=== PATIENT | female | born 2000 | race Caucasian/White ===

== ENCOUNTER 2022-03-10 10:29 | Emergency (ER) | payer OTHER, SELFPAY ==
--- NOTE | 2022-03-10 10:36 | ED_ITS ---
HPI - Extremity Injury (Upper) General Chief Complaint: Extremity Injury, Upper Stated Complaint: Smashed hand in truck door- poss broken finger Time Seen by Provider: 03/10/22 10:34 History of Present Illness HPI narrative: 21-year-old female nonsmoker with noncontributory medical history presents with a chief complaint of a crush injury to her right 5th finger just prior to arrival. She is working as a metal casting trades worker and the sliding door to a truck smashed on her finger causing injury. She has full but painful range of motion and multiple lacerations. She is bleeding some. She denies numbness or tingling. She denies injury to other fingers, hand, wrist elbow or other. She believes her tetanus is likely out of date. She is otherwise well and free of complaint Related Data Previous Rx's Medication Instructions Recorded cephalexin 500 mg capsule 500 mg PO BID #10 cap 03/10/22 Allergies Allergy/AdvReac Type Severity Reaction Status Date / Time No Known Drug Allergies Allergy Verified 03/10/22 10:40 Review of Systems Review of Systems Narrative: GENERAL: Denies chills, fatigue, malaise, fever, sweats. HEENT: Denies sinus pain, ear pain, sore throat, difficulty swallowing, dizziness. RESPIRATORY: Denies dyspnea, cough, wheezing, hemoptysis, sputum. CARDIOVASCULAR: Denies chest pain, palpitations, orthopnea, edema, GASTROINTESTINAL: Denies nausea, vomiting, abdominal pain, diarrhea, constipation, melena. : Denies dysuria, frequency, incontinence, hematuria, urinary retention. MUSCULOSKELETAL: See HPI SKIN: See HPI NEUROLOGIC: Denies weakness, headache, numbness, change in speech, confusion, seizures, incoordination. PSYCHIATRIC: No concerning psychosocial issues. 12 point review of systems is negative except for those stated above Patient History Social History Smoking Status: Never smoker Exam Narrative Exam Narrative: GEN: AOx3 and in mild distress EYES: Pupils are equal, round, and reactive to light and accommodation. Extraoccular muscles are intact bilaterally. There is no subconjunctival hem orrhage or exudate. CHEST: Lungs are clear to auscultation bilaterally and free of wheezes, rales, or rhonchi. Heart rate is regular rhythm, there are no murmurs, clicks, rubs, or gallops. There is no chest wall tenderness. ABD: Abdomen is soft and nontender. There is no guarding or rebound. Bowel sounds are normal in all 4 quadrants. There is no mass or organomegaly. EXT: Full but painful ROM of R fifth finger, superficial skin tears on volar surface, depth not sufficient to suture, no FB or tendon involvement. SKIN: Warm, pink, and dry. No erythema or rash Initial Vital Signs Initial Vital Signs: Vital Signs Temperature 97.2 F L 03/10/22 10:40 Pulse Rate 77 03/10/22 10:40 Respiratory Rate 24 03/10/22 10:40 Blood Pressure 150/79 H 03/10/22 10:40 Pulse Oximetry 100 03/10/22 10:40 Course Orders Ordered: ED Orders 03/10/22 10:37 XR finger RT min 2V Stat Discontinued Medications Acetaminophen (Acetaminophen 325 Mg Tablet) 650 mg PO NOW ONE Stop: 03/10/22 10:38 Last Admin: 03/10/22 11:16 Dose: 650 mg Documented by: ATAYLOR Diphtheria/Tetanus/Acell Pertussis (Tet,Diph,Pertuss(Acell),Vac/Pf 0.5 Ml Syringe) 0.5 ml IM .ONCE ONE Stop: 03/10/22 10:38 Last Admin: 03/10/22 11:17 Dose: 0.5 ml Documented by: ATAYLOR Lidocaine/Sodium Bicarbonate (Lido 1%/Sod Bicarb 8.4% (10ml) 10 Ml Syringe) 10 ml INJ NOW ONE Stop: 03/10/22 10:38 Last Admin: 03/10/22 11:15 Dose: 10 ml Documented by: ATAYLOR Vital Signs Vital signs: Vital Signs - 8 hr 03/10/22 10:40 Temperature 97.2 F L Pulse Rate 77 Respiratory Rate 24 Blood Pressure 150/79 H Pulse Oximetry 100 MDM - Extremity Injury (Upper) Imaging Data Extremity x-ray #1: Radiologist's Impression: Chart Viewer Diagnostics Subcategory All Activity ??:?? All Time ??:?? All Subcategories Filter Laboratory Imaging Microbiology Pathology Blood Bank Tests Cardiovascular Other Specialty DATE TYPE STATUS REF RANGE/AUTHOR Hx Today 10:37 Finger X-Ray Signed Rosalinda Zamorano Ashley D ED 21, F?2000 MRN#? [id number] [facility],?Main ED??R11?? 165.1cm 63.503kg BMI: 23.3kg/m? Extremity Injury, Upper Acc#? [id number] Resus Status Not Ordered No Hx Avail Special Indicators No Data to Display Home Meds Confirmed Prescription Monitoring Program MEDICATIONS (INSTRUCTIONS) LAST TAKEN Active cephalexin 500 mgPOBID#10 cap Allergies No Known Drug Allergies Problems ? ONSET Crush injury to finger Vital Signs Today 10:40 BP 150/79?H Pulse 77? Resp 24? Temp 97.2 F?L O2 Sat 100? Delivery Room Air? Diagnostics Reports Danni Colin??21??F??2000 ? Allergy/Adv: No Known Drug Allergies Close Finger X-Ray (Signed) Oz Zamoranoamelia - 03/10/22 [place] [address] XRay Report Signed Patient: Danni Colin MR#: [id number] : 2000 Acct:[id number] Age/Sex: 21 / F Date of Service: 03/10/22 Loc: ED Accession Number: [id number] ?? Procedure: XR finger RT min 2V Ordering Provider: Vamsi Temple D.O. PROCEDURE:? XR FINGER RT MIN 2V ? INDICATIONS:? crush injury to fifth finger ? TECHNIQUE:? AP hand, 2 views of the 5th finger(s) acquired.? ? COMPARISON:? [facility], CR, XR HAND 3+ VIEWS RIGHT, 12/09/2020, 18:54. ? FINDINGS:? ? Bones:? Possible minimally displaced fracture at the base of the 5th distal phalanx of uncertain chronicity.? No dislocation.? No suspicious bony lesions.? ? Soft tissues:? No suspicious soft tissue calcifications.? Soft tissue defect suggesting laceration. ? IMPRESSION:? Suspect minimally displaced fracture at the base of the 5th distal phalanx of uncertain chronicity. ? ? Dictated by: [place] Zamorano M.D. on 03/10/2022 at 10:33 ? ? Approved by: [place] Zamorano M.D. on 03/10/2022 at 10:37 ? Discharge Plan Departure Patient Disposition: Home Clinical Impression: Crush injury to finger Instructions: DI for Finger Fracture Activity Restrictions/Additional Instructions: *You have been diagnosed with [crush injury with likely very small avulsion fracture at the base of the distal phalanx of your saiy. As we discussed the injuries to your skin are not sufficiently deep to allow suture placement, we will need to follow closely with your L&I provider to provide appropriate wound care. *What to do: *Please continue to take your regular medications as directed. [x ] New medication prescriptions sent to your pharmacy: [[facility] in [place] ] [ ] New medication written as a paper prescription [ ] No new medications given *Please follow up with your primary care provider in 2-3 days, call for an appointment. Let them know you were seen in the Emergency Department and that we ask that you be seen in follow up. We will electronically transmit a record of today's note if your PCP is in our system *If you do not have a primary care provider please contact the [facility] Resource line at [phone]. They will ask some questions about your medical history and help get you set up with a doctor in the community. *Return to Emergency Department if you should have any new, worsening or concerning symptoms, such as [fever greater than 101 F, shaking chills, worsening pain, persistent vomiting or other bothersome symptoms] Prescriptions: New cephalexin 500 mg capsule 500 mg PO BID Qty: 10 0RF Referrals: Kevin Ruiz MD [Physician] - Stand Alone Forms: Work Release Note
--- NOTE | 2022-03-10 10:37 | DI.RAD.S_ITS ---
PROCEDURE: XR FINGER RT MIN 2V INDICATIONS: crush injury to fifth finger TECHNIQUE: AP hand, 2 views of the 5th finger(s) acquired. COMPARISON: [facility], CR, XR HAND 3+ VIEWS RIGHT, 12/09/2020, 18:54. FINDINGS: Bones: Possible minimally displaced fracture at the base of the 5th distal phalanx of uncertain chronicity. No dislocation. No suspicious bony lesions. Soft tissues: No suspicious soft tissue calcifications. Soft tissue defect suggesting laceration. IMPRESSION: Suspect minimally displaced fracture at the base of the 5th distal phalanx of uncertain chronicity. Dictated by: [place] Zamorano M.D. on 03/10/2022 at 10:33 Approved by: [place] Zamorano M.D. on 03/10/2022 at 10:37
[2022-03-10 10:40] VITALS: BP 150/79; PULSE 77; RESP 24; TEMP 36.2; O2SAT 100; BMI 23.3
[2022-03-10] MEDS: LIDO 1%/SOD BICARB 8.4% (10ML) 10 ML SYRINGE INJ (11:15)
[2022-03-10] MEDS: ACETAMINOPHEN 325 MG TABLET 650 MG PO (11:16)
[2022-03-10] MEDS: TET,DIPH,PERTUSS(ACELL),VAC/PF 0.5 ML SYRINGE IM (11:17)
--- NOTE | 2022-03-10 11:40 | PC.NURSE ---
wound care provided cleansed with sterile saline. used 2 steri strips and then nonadherent pad and tube gauze to secure site.
[2022-03-10 12:00] VITALS: BP 111/60; PULSE 70; RESP 18; TEMP 36.9; O2SAT 98
== END 2022-03-10 12:13 | disposition home or self-care (01) ==
PROVIDERS: Emergency Provider Emergency Medicine
DX: S67.196A Crushing injury of right little finger, initial encounter (principal); W23.0XXA Caught, crushed, jammed, or pinched between moving objects, initial encounter; Y99.0 Civilian activity done for income or pay; Z23 Encounter for immunization
CPT/HCPCS: 73140; 90471; 99283; 90715

== ENCOUNTER → 2022-05-04 15:08 | Outpatient (CLI) | payer OTHER, MEDICAID, SELFPAY ==
[2022-05-04 20:31] LABS: Urine Chlamydia NOT DETECTED; Urine N gonorrhoeae NOT DETECTED
== END ==
PROVIDERS: Visit Provider Obstetrics & Gynecology
DX: Z34.02 Encounter for supervision of normal first pregnancy, second trimester (principal); Z20.2 Contact with and (suspected) exposure to infections with a predominantly sexual mode of transmission; Z3A.20 20 weeks gestation of pregnancy
CPT/HCPCS: 87491; 87591

== ENCOUNTER → 2022-05-04 15:14 | Outpatient (CLI) | payer OTHER, MEDICAID, SELFPAY ==
[2022-05-04 16:25] LABS: Add Manual Diff / Slide Review NO; Basophils Absolute Auto 0 /uL (0-100); Basophils Percent Auto 0.4 % (0-2); Eosinophils Absolute Auto 200 /uL (0-450); Eosinophils Percent Auto 1.8 % (2-4); Hematocrit 37.3 % (36-46); Hemoglobin 12.8 g/dL (12.0-16.0); Lymphocytes Absolute Auto 2800 /uL (1100-4500); Lymphocytes Percent Auto 24.3 % (25-40); Mean Corpuscular HGB Conc 34.3 % (30-36); Mean Corpuscular Hemoglobin 29.4 PG (26-34); Mean Corpuscular Volume 85.8 fL (80-100); Monocytes Absolute Auto 700 /uL (0-900); Monocytes Percent Auto 5.8 % (3-14); Neutrophils Absolute Auto 7800 /uL (1500-7000); Neutrophils Percent Auto 67.7 % (50-75); Platelet Count 282 X10^3/uL (150-400); Red Blood Cell Count 4.34 X10^6/uL (4.0-5.2); Red Cell Distribution Width 14.3 % (11.6-14.8); White Blood Cell Count 11.5 X10^3/uL (4.5-11.0)
[2022-05-05 09:08] LABS: RPR Screen Non Reactive (Non Reactive); Varicella IgG Antibody <135 index (Immune >165)
[2022-05-07 18:07] LABS: HIV 1 & 2 Ab/Ag 4th Gen Combo NEGATIVE (NEGATIVE); Hep C Virus Ab w/Reflex Quant NEGATIVE s/c (NEGATIVE); Hepatitis B Surface Antigen NEGATIVE s/c (NEGATIVE); Rubella Antibody IgG 9.8 IU/mL (>15)
== END ==
PROVIDERS: Referring Provider Obstetrics & Gynecology; Visit Provider Obstetrics & Gynecology
DX: Z36.89 Encounter for other specified antenatal screening (principal); Z20.2 Contact with and (suspected) exposure to infections with a predominantly sexual mode of transmission; Z3A.20 20 weeks gestation of pregnancy
CPT/HCPCS: 36415; 80055; 86787; 86803; 86850; 86900; 86901; 87389; 87491; 87591

== ENCOUNTER → 2022-05-09 07:41 | Outpatient (CLI) | payer OTHER, MEDICAID, SELFPAY ==
--- NOTE | 2022-05-09 07:42 | DI.US.S_ITS ---
PROCEDURE: US OB >= 14 WEEKS FETUS INDICATIONS: Confirm DONOVAN/ Dating US OUTSIDE/PRIOR DATING DATA: Last menstrual period (LMP): 01/06/2022. LMP-based estimated date of delivery (DONOVAN): 10/13/2022. First dating scan (date and location): 04/05/2022. Estimated date of delivery (DONOVAN) from first dating scan: 09/20/2022. TECHNIQUE: Real-time scanning was performed of the fetus, with image documentation and biometric measurements. Endovaginal scanning: Not performed COMPARISON: None. FINDINGS: General: A single living intrauterine gestation is present. Presentation: Vertex. Placenta: Placental position is anterior , without previa. Amniotic fluid index: 14.1 cm, normal range is 5-24 cm. Single deepest vertical pocket is 4.9 cm. heart rate: 140 beats per minute. Maternal cervical canal: 4.2 cm long. Normal lower limit is 2.5 cm. biometrics: Biparietal diameter: 5.1 cm, 21 weeks 2 days Head circumference: 18.6 cm, 20 weeks 6 days Abdominal circumference: 16.7 cm, 21 weeks 5 days Femur length: 3.5 cm, 20 weeks 6 days Clinically estimated gestational age: 20 weeks 6 days Composite gestational age from present scan: 21 weeks 1 day Estimated weight and percentile: 413 g, 69th percentile Anatomic survey: Neuro: Ventricles are non-dilated at less than 10 mm. Cisterna magna is normal at 3-11 mm. Cerebellum is normal in size and morphology. Nuchal skin fold: Normal at less than 6 mm between 14-21 weeks gestational age. Face: Nose and lips, facial profile are normal. Spine: No evidence for spina bifida. Heart: 4-chambered heart is present, with normal ventricular outflow tracts. Diaphragm: Diaphragm is intact. Stomach: Left-sided stomach is present. Kidneys: No hydronephrosis. Normal is less than 5 mm in 2nd trimester, less than 7 mm in 3rd trimester. Cord: 3-vessel cord has orthotopic insertion. Bladder: Normal in size. Extremities: All 4 extremities identified. IMPRESSION: 1. Single living intrauterine , gestational age of 20 weeks 6 days by LMP. By biometry, gestational age is 21 weeks 1 day. 2. Estimated weight at the 69th percentile. 3. Normal 2nd trimester anatomy scan. No anomalies detected at this time. We strive to produce accurate, complete, and clear reports of imaging services. To assist us in improving patient care, this report was composed using standard report templates and voice recognition software. Therefore, it may contain abnormal punctuation, insertions and/or omissions. Occasional wrong-word or sound-alike substitutions may occur. Though we review the report and make efforts to correct it, we do recommend that the report be read carefully in proper context to recognize any text inaccuracies. Dictated by: Aden Hauser M.D. on 05/09/2022 at 20:20 Approved by: Aden Hauser M.D. on 05/09/2022 at 20:27
== END ==
PROVIDERS: Referring Provider Obstetrics & Gynecology; Visit Provider Obstetrics & Gynecology
DX: Z34.02 Encounter for supervision of normal first pregnancy, second trimester (principal); Z3A.21 21 weeks gestation of pregnancy
CPT/HCPCS: 76811

== ENCOUNTER → 2022-05-28 10:51 | Outpatient (CLI) | payer OTHER, MEDICAID, SELFPAY ==
[2022-05-28 14:52] LABS: Appearance Urine UA SL CLOUDY; Bilirubin Urine UA NEGATIVE (NEGATIVE); Color Urine UA YELLOW; Glucose Urine UA NEGATIVE (Negative); Ketones Urine UA NEGATIVE (NEGATIVE); Leukocyte Esterase Urine UA TRACE (NEGATIVE); Nitrite Urine UA NEGATIVE (Negative); Occult Blood Urine UA NEGATIVE (Negative); Protein Urine UA NEGATIVE (Negative); Urobilinogen Urine UA 0.2 E.U./dL (0.2)
[2022-05-28 15:15] LABS: Amorphous Sediment Urine 2+; Bacteria Urine Occasional (0-1); RBC Urine None Seen (0-5/HPF); Squamous Epithelial Cell Urine 10-30 /HPF (0-5/HPF); WBC Urine 1-5/HPF (0-5/HPF)
== END ==
PROVIDERS: Obstetrics & Gynecology; Visit Provider Obstetrics & Gynecology
DX: Z34.02 Encounter for supervision of normal first pregnancy, second trimester (principal); Z3A.23 23 weeks gestation of pregnancy
CPT/HCPCS: 81003; 81015; 87077; 87086

== ENCOUNTER → 2022-06-25 16:24 | Outpatient (CLI) | payer OTHER, MEDICAID, SELFPAY ==
[2022-06-25 17:47] LABS: Hematocrit 34.9 % (36-46); Hemoglobin 12.3 g/dL (12.0-16.0)
[2022-06-25 18:04] LABS: GTT (PREG) 1 Hour PP 50gm Dose 110 mg/dL (76-139)
== END ==
PROVIDERS: Referring Provider Obstetrics & Gynecology; Visit Provider Obstetrics & Gynecology
DX: O26.899 Other specified pregnancy related conditions, unspecified trimester (principal); Z67.91 Unspecified blood type, Rh negative; Z3A.26 26 weeks gestation of pregnancy
CPT/HCPCS: 36415; 82950; 85014; 85018; 86850

== ENCOUNTER → 2022-08-27 12:48 | Outpatient (CLI) | payer OTHER, MEDICAID, SELFPAY ==
[2022-08-27 15:48] LABS: Urine N gonorrhoeae NOT DETECTED
[2022-08-27 15:55] LABS: Urine Chlamydia NOT DETECTED
[2022-08-28 14:16] LABS: Strep Grp B PCR NEG for Grp B Strep
== END ==
PROVIDERS: Visit Provider Physician Assistant Medical
DX: Z34.03 Encounter for supervision of normal first pregnancy, third trimester (principal); Z3A.36 36 weeks gestation of pregnancy; Z86.19 Personal history of other infectious and parasitic diseases
CPT/HCPCS: 87491; 87591; 87653

== ENCOUNTER 2022-09-17 04:54 | Inpatient (IN) | payer OTHER, MEDICAID, SELFPAY ==
[2022-09-17 06:10] VITALS: BP 124/80
[2022-09-17 06:47] LABS: COVID19 -Nasal RAPID Negative (Negative)
[2022-09-17 06:58] LABS: Add Manual Diff / Slide Review NO; Basophils Absolute Auto 100 /uL (0-100); Eosinophils Absolute Auto 300 /uL (0-450); Eosinophils Percent Auto 2.2 % (2-4); Hematocrit 36.6 % (36-46); Hemoglobin 12.4 g/dL (12.0-16.0); Lymphocytes Absolute Auto 3100 /uL (1100-4500); Lymphocytes Percent Auto 21.3 % (25-40); Mean Corpuscular HGB Conc 33.9 % (30-36); Mean Corpuscular Hemoglobin 29.4 PG (26-34); Mean Corpuscular Volume 86.8 fL (80-100); Monocytes Absolute Auto 1100 /uL (0-900); Monocytes Percent Auto 7.5 % (3-14); Neutrophils Absolute Auto 10000 /uL (1500-7000); Platelet Count 278 X10^3/uL (150-400); Red Blood Cell Count 4.22 X10^6/uL (4.0-5.2); Red Cell Distribution Width 13.9 % (11.6-14.8); White Blood Cell Count 14.6 X10^3/uL (4.5-11.0)
[2022-09-17] MEDS: LACTATED RINGERS 1,000 ML 100 ML IV ×2 (07:35→09:58)
--- NOTE | 2022-09-17 08:04 | P.HPOB_ITS ---
OB HPI Date/Time Date of admission: 09/17/22 Date Patient Seen: 09/17/22 Time Patient Seen: 08:05 History of Present Condition Chief complaint: labor DONOVAN Calculator Estimated Delivery Date Method Current WG Current Estimate 09/20/22 Ultrasound #1 39w 4d Other Estimates 10/13/22 LMP (Uncertain) 36w 2d Estimated Gestational Age (weeks): 39 : 1 Narrative: 22 yo G1 presents at 39 weeks 4 days, with DONOVAN set by a 16 week ultrasound due to discordancy on the 16 week ultrasound, presented with LOF. She awoke around 3:30 a.m. with a gush of fluid which continued. She subsequently developed uncomfortable contractions. She has become more uncomfortable with contractions and desires an epidural. has been uncomplicated. She did have a positive screen for chlamydia pn PAP with her new OB visit, treated and repeat test of cure was negative and re-screen at 36 weeks was negative. She is Rh negative and received RhoGAM at 28 weeks. Commercial Lines Manager history significant for history of genital HSV, on suppression. No lesions or symptoms. Her GBS screen is negative care: good care Dating criteria OB: based on 2nd trimester US only (DONOVAN set by a 16 week US) Ultrasounds: normal mid trimester US Obstetrical complications: none Medical complications OB: none Preadmission Labs Last OB Lab Results: Blood Type A Negative 09/17/22 06:40 Antibody Screen Negative 09/17/22 06:40 Hematocrit 36.6 % (36-46) 09/17/22 06:40 Hemoglobin 12.4 g/dL (12.0-16.0) 09/17/22 06:40 Hepatitis B Surface Antigen Negative s/c (NEGATIVE) 05/04/22 15 :19 Hepatitis C Antibody Negative s/c (NEGATIVE) 05/04/22 15:19 Rubella Antibody 9.8 IU/mL (>15) L 05/04/22 15:19 Varicella-Zoster IgG Antibody <135 index (Immune >165) L 15:19 Glucose 1 Hour 110 mg/dL (76-139) 06/25/22 17:35 Group B Streptococcus (PCR) Neg for grp b strep 08/27/22 12:48 -: Chlamydia screen: positive (04/2022 treated and PETER negative) and Gonorrhea screen: negative -: PAP smear: Normal (04/2022) Evaluation Evaluation Baseline heart rate: 120 Contraction Frequency (minutes): 5 Uterine Contraction Intensity: Moderate Category of Tracing: Reactive Status: Category l Dilation (cm): 3 Effacement (%): 75 station: -1 Non-invasive Membranes Rupture Test: positive Comments: cervical exam at 0620. not re-checked [facility] Medical History Herpes (~2018) Family History Grandfather Diabetes mellitus Hyperlipidemia Grandfather Myocardial infarction Diabetes mellitus History of heart disease Grandmother Ovarian cancer Breast cancer Skin cancer Grandmother Cancer of kidney Mother Colon cancer Social History marital status: unmarried,single number of children: 0 household members: family (Sister and niece) lives independently: Yes housing: apartment ([facility]) pets and animals: Yes (2 cats and one dog. Aware of toxoplasmosis.) education level: high school occupational status: employed current occupational exposures/hazards: No special kenneth needs: No seatbelt use: always water heater temp set < 120 deg: No (Will check) working smoke detector in home: Yes fire extinguisher in home: Yes carbon monox detector in home: Yes firearms in home: No do you feel safe at home: Yes Smoking Status: Never smoker second hand exposure: No alcohol intake: former substance use type: marijuana (Quit when she learned she was ) during the past year weight has: remained stable well-balanced diet: about half the time daily servings fruits/ve-4 caffeine: Yes Type(s) of exercise: walking Meds Home Medications and Allergies Home Medications Medication Instructions Recorded Confirmed Type folic acid 800 mcg tablet 0.8 mg PO DAILY 03/22/22 09/17/22 History prenat.vits,kim,uin-wkxn-ioorg 1 tab PO DAILY 03/22/22 09/17/22 History valacyclovir 500 mg tablet 500 mg PO Q12H #60 tabs 08/22/22 09/17/22 Rx (Valtrex) Allergies Allergy/AdvReac Type Severity Reaction Status Date / Time No Known Drug Allergies Allergy Verified 09/17/22 06:13 OB Exam Narrative Exam Narrative: General: Well-appearing female, uncomfortable with contractions but coping very well Heart: Regular rate Lungs: Normal inspiratory effort Extremities: Trace pedal edema cervical exam at 6:20 a.m. , change from 2 cm in the office. grossly clear fluid noted Objective Labs Result Diagrams: 09/17/22 06:40 Labs: Laboratory Results - last 24 hr 09/17/22 09/17/22 09/17/22 06:29 06:40 06:40 WBC 14.6 H RBC 4.22 Hgb 12.4 Hct 36.6 MCV 86.8 MCH 29.4 MCHC 33.9 RDW 13.9 Plt Count 278 Neut % (Auto) 68.0 Lymph % (Auto) 21.3 L [place] % (Auto) 7.5 Eos % (Auto) 2.2 Baso % (Auto) 1.0 Neut # (Auto) 79008 H Lymph # (Auto) 3100 [place] # (Auto) 1100 H Eos # (Auto) 300 Baso # (Auto) 100 SARS-CoV-2 (PCR) Negative Blood Type A Negative Antibody Screen Negative Assessment and Plan Assessment and Plan Assessment and Plan narrative: 22-year-old G1 female at 39 weeks 4 day EGA with dates by a 16 week ultrasound, presented with ruptured membranes. She progressed into spontaneous labor. She is uncomfortable with contractions And desires an epidural. GBS negative Routine CBC and type and screen sent. Receiving IV fluid bolus for epidural Anesthesiologist already notified and will come shortly for epidural. I will recheck her cervix after the epidural. Time Spent with Patient Total time spent with greater than 50% in coordination of care (as documented) at patient's floor/unit and/or counseling patient:: less than 15 minutes
[2022-09-17] MEDS: FENT 2MCG/ML BUPIV 0.125% EPI 200 MCG/100 ML PLAST..BAG 8 MCG EPIDURAL ×2 (08:35→16:25)
--- NOTE | 2022-09-17 09:49 | PM.OBPNLAB ---
Date/Time Date Patient Seen: 09/17/22 Time Patient Seen: 09:40 Pain Control Pain control: epidural Comments: Comfortable with an epidural now Pelvic Exam Dilation (cm): 6 Effacement (%): 90 station: -1 Amniotic membrane status: Ruptured (at approx 0330) Contractions Contraction frequency (min): 3 Contraction pattern: Irregular Contraction intensity: Moderate Status status: Category l Heart Rate Baseline: 125 Monitor Accelerations: Present Monitor Decelerations: Absent Monitor Variability: Moderate Assessment and Plan Assessment: active labor Plan: continuous present management
[2022-09-17] MEDS: OXYTOCIN PREMIX 30 UNIT/500 ML PLAST..BAG IV (15:04)
--- NOTE | 2022-09-17 16:09 | PM.OBPNLAB ---
Date/Time Date Patient Seen: 09/17/22 Time Patient Seen: 16:09 Pain Control Pain control: tolerating well and epidural Pelvic Exam Dilation (cm): 10 Effacement (%): 100 station: +1 Amniotic membrane status: Ruptured (at approx 0330) Contractions Contraction frequency (min): 3 Contraction pattern: Irregular Contraction intensity: Moderate Status status: Category l Heart Rate Baseline: 135 Monitor Accelerations: Episodic Monitor Decelerations: Periodic and Variable Monitor Variability: Moderate Comments: average FHR variability Assessment and Plan Assessment: active labor and other (pushing since 1415) Comments: patient complete earlier this afternoon. Her epidural was dense and she was not feeling any pressure. She was allowed to labor down while epidural was turned down. Approximately 30-45 minutes later she began feeling pressure and she began pushing. She has been pushing since 0215. I checked her approximately 45 minutes to 1 hour into pushing. Contractions had spaced to every 5 minutes up to every 12 minutes at times. Pitocin started at 2 milliunits. She is pushing well. she is having some gradual progress. Vertex is still at 1+ station, but during a push brings vertex to 3+. Position difficult to palpate, but believe JENNIFFER, to almost LOT. Only small amount of molding noted. She is pushing better this last hour with contractions palpating More moderate now. Continue pushing. Close observation of FHR with pushing.
--- NOTE | 2022-09-17 18:44 | P.CONS_ITS ---
History of Present Illness Consult details Date Patient Seen: 09/17/22 Time Patient Seen: 18:44 Chief complaint: labor Reason for consult: Possible forceps placement Requesting provider: Mya Seals Narrative: Patient is a 22-year-old 1 para 0 who presented with spontaneous rupture membranes. Pitocin was given for augmentation of labor. She progressed to complete dilation and pushed for 3+ hours. Consult was requested for possible forceps placement. Uncomplicated . Meds Home Medications and Allergies Home Medications Medication Instructions Recorded Confirmed Type folic acid 800 mcg tablet 0.8 mg PO DAILY 03/22/22 09/17/22 History prenat.vits,kim,fji-sppa-fupil 1 tab PO DAILY 03/22/22 09/17/22 History valacyclovir 500 mg tablet 500 mg PO Q12H #60 tabs 08/22/22 09/17/22 Rx (Valtrex) Allergies Allergy/AdvReac Type Severity Reaction Status Date / Time No Known Drug Allergies Allergy Verified 09/17/22 06:13 Exam Narrative Exam Narrative: Generally: Patient lying in bed, comfortable with epidural. Vaginal exam: +1 station at rest. To +2 station with a push. Procedure: An in and out catheterization was performed. The vulva and perineum were cleaned. The baby was found to be asynclitic and thought to be in the occiput posterior presentation. The Laufe forceps were placed without difficulty. One contraction, and 3 pulls, the vertex was brought to the perineum. The lower forceps were removed. The remainder of the delivery was performed by Dr. Seals. Objective Labs Result Diagrams: 09/17/22 06:40 Labs: Laboratory Results - last 24 hr 09/17/22 09/17/22 09/17/22 06:29 06:40 06:40 WBC 14.6 H RBC 4.22 Hgb 12.4 Hct 36.6 MCV 86.8 MCH 29.4 MCHC 33.9 RDW 13.9 Plt Count 278 Neut % (Auto) 68.0 Lymph % (Auto) 21.3 L [place] % (Auto) 7.5 Eos % (Auto) 2.2 Baso % (Auto) 1.0 Neut # (Auto) 59200 H Lymph # (Auto) 3100 [place] # (Auto) 1100 H Eos # (Auto) 300 Baso # (Auto) 100 SARS-CoV-2 (PCR) Negative Blood Type A Negative Antibody Screen Negative PFSH Medical History Herpes (~2019) Family History Grandfather Diabetes mellitus Hyperlipidemia Grandfather Myocardial infarction Diabetes mellitus History of heart disease Grandmother Ovarian cancer Breast cancer Skin cancer Grandmother Cancer of kidney Mother Colon cancer Social History marital status: unmarried,single number of children: 0 household members: family (Sister and niece) lives independently: Yes housing: apartment ([facility]) pets and animals: Yes (2 cats and one dog. Aware of toxoplasmosis.) education level: high school occupational status: employed current occupational exposures/hazards: No special kenneth needs: No Safety seatbelt use: always water heater temp set < 120 deg: No (Will check) working smoke detector in home: Yes fire extinguisher in home: Yes carbon monox detector in home: Yes firearms in home: No do you feel safe at home: Yes Tobacco & Substance Use Smoking Status: Never smoker second hand exposure: No alcohol intake: former substance use type: marijuana (Quit when she learned she was ) Diet and Exercise during the past year weight has: remained stable well-balanced diet: about half the time daily servings fruits/ve-4 caffeine: Yes Type(s) of exercise: walking Assessment & Plan Assessment & Plan narrative: Assessment: Prolonged second stage of labor Asynclitic presentation Plan: Forceps assisted delivery as above Time Spent With Patient Time with patient: 30 to 49 minutes with 50% spent counseling/coordinating care Critical Care time: I spent a total of [] minutes of critical care time on this patient's care today; this time is exclusive of procedural time.
--- NOTE | 2022-09-17 20:07 | PM.OBPRVD ---
Events: Labor Augmentation (In 2nd stage) Labor & Delivery Delivery date: 09/17/22 Intrapartal Events: Prolonged 2nd Stage > 2.5 hours Cervical ripening method: none Induction method: none Delivery augmentation: pitocin Delivery monitor: external FHT Route of delivery: forceps Indication for instrumentation: other (prlonged second stage) L&D Laceration Description: Periurethral - 1st Degree (left. repaired with 4-0 chromic) and Vaginal - 2nd Degree ( Bilateral. Right vaginal sulcal tear extending to distal vagina and just through labia, repaired. distal left vaginal sidewall laceration, repaired) Delivery repair: chromic Quantitative Blood Loss: 400 Anesthesia Type: Epidural Complications: none Narrative: She progressed to completely dilated. ?She began pushing. The 1st hour her contractions were fairly spaced every 5-12 minutes at times. Pitocin was started at 2 milliunits. Contractions became more frequent. She pushed over 3 hours and brought the vertex to 2+ station. Initially question on exam whether baby was OP, but as she pushed baby appeared JENNIFFER, but vertex somewhat asynclitic. She was making progress but slow gradual progress. EFW approximately 7 lb. At 3 hours she had brought the vertex low enough to assist and vacuum assistance offered due to prolonged 2nd stage and patient was beginning to appear fatigued. She desired to continue pushing on her own. About 30 minutes later however she decided she did desire assistance. Consult placed to Dr. Gayle for additional option of forceps delivery and discussed with patient option of forceps versus vacuum. Patient opted for forceps assisted vacuum delivery. Her bladder was sterilely drained with a red rubber catheter. Dr. Gayle placed the forceps and brought the vertex to near with 1 contraction, essentially 1 pull. Forceps removed. The patient then was instructed to push herself and she pushed the head to and vertex was delivered in a controlled fashion over an intact perineum. No nuchal cord was present. Anterior followed by posterior shoulder were delivered without difficulty with the patient pushing, followed by the body. A baby girl was delivered and placed on the maternal abdomen. The baby cried spontaneously and became vigorous. After 1 minute, cord was clamped and cut. Placenta delivered spontaneously approximately 10 minutes later. She was given routine IV Pitocin. ?She had some persistent trickling of blood, mildly increased over normal after delivery of the placenta. Some clots were palpated in the lower uterus and evacuated. The uterus did not feel very firm on bimanual examination. Bimanual massage was performed and the uterus firmed up. Her vaginal bleeding then remained normal throughout the repair. Placenta was normal in appearance, intact with a three-vessel cord. On inspection she had a a right vaginal sulcal tear, first-degree,?which extended to the distal vagina and just through the labia as a second degree. This was repaired with 3-0 chromic. There was also a distal left vaginal laceration extending just through the hymen. This was repaired with 3-0 chromic. There was a first-degree left periurethral tear which was repaired with 4-0 chromic. She did well and was left to recover in good condition. . [place] Baby 1: Infant gender: Female Presentation: vertex Position: Left Occiput Anterior Placenta delivery description: Spontaneous and Normal Configuration Cord Vessel Description: 3 Vessels score (1 min): 9 score (5 min): 9 weight: 7 lb 10 oz Plan for aftercare: Routine care
[2022-09-17] MEDS: ACETAMINOPHEN 325 MG TABLET 650 MG PO (22:34)
[2022-09-17] MEDS: IBUPROFEN 600 MG TABLET PO (22:35)
[2022-09-17] MEDS: DERMOPLAST SPRAY 20% 60 ML 1 SPRAY TOP (22:35)
[2022-09-18] MEDS: ACETAMINOPHEN 325 MG TABLET 650 MG PO ×2 (05:50→12:02)
[2022-09-18] MEDS: IBUPROFEN 600 MG TABLET PO ×2 (05:51→12:02)
[2022-09-18 08:29] LABS: Add Manual Diff / Slide Review NO; Basophils Absolute Auto 100 /uL (0-100); Basophils Percent Auto 0.3 % (0-2); Eosinophils Absolute Auto 100 /uL (0-450); Eosinophils Percent Auto 0.5 % (2-4); Hematocrit 24.3 % (36-46); Lymphocytes Absolute Auto 4500 /uL (1100-4500); Lymphocytes Percent Auto 18.5 % (25-40); Mean Corpuscular HGB Conc 32.9 % (30-36); Mean Corpuscular Hemoglobin 28.8 PG (26-34); Mean Corpuscular Volume 87.6 fL (80-100); Monocytes Absolute Auto 1600 /uL (0-900); Monocytes Percent Auto 6.8 % (3-14); Neutrophils Absolute Auto 17800 /uL (1500-7000); Neutrophils Percent Auto 73.9 % (50-75); Platelet Count 234 X10^3/uL (150-400); Red Blood Cell Count 2.78 X10^6/uL (4.0-5.2); Red Cell Distribution Width 13.8 % (11.6-14.8); White Blood Cell Count 24.1 X10^3/uL (4.5-11.0)
--- NOTE | 2022-09-18 14:20 | P.DS_ITS ---
History of Present Illness History of Present Illness Chief complaint: maternity Discharge Providers Provider Date of admission: 09/17/22 04:54 Discharge Date: 09/18/22 Primary care physician: Doctor Adams MD Consults: 09/17/22 06:17 Consult to Anesthesiology Urgent Comment: Consulting Provider: Olga Gayle Reason for consultation: Labor Has provider been notified: No 09/18/22 20:17 Consult to Lawn Maintenance Worker Routine Comment: Discharge provider: Mya Seals MD Objective Labs Result Diagrams: 09/18/22 08:15 Labs: Laboratory Results - last 24 hr 09/18/22 08:15 WBC 24.1 H D RBC 2.78 L Hgb 8.0 L Hct 24.3 L MCV 87.6 MCH 28.8 MCHC 32.9 RDW 13.8 Plt Count 234 Neut % (Auto) 73.9 Lymph % (Auto) 18.5 L [place] % (Auto) 6.8 Eos % (Auto) 0.5 L Baso % (Auto) 0.3 Neut # (Auto) 66390 H Lymph # (Auto) 4500 [place] # (Auto) 1600 H Eos # (Auto) 100 Baso # (Auto) 100 PFSH Medical History Herpes (~2019) Family History Grandfather Diabetes mellitus Hyperlipidemia Grandfather Myocardial infarction Diabetes mellitus History of heart disease Grandmother Ovarian cancer Breast cancer Skin cancer Grandmother Cancer of kidney Mother Colon cancer Social History marital status: unmarried,single number of children: 0 household members: family (Sister and niece) lives independently: Yes housing: apartment (townhouse) pets and animals: Yes (2 cats and one dog. Aware of toxoplasmosis.) education level: high school occupational status: employed current occupational exposures/hazards: No special kenneth needs: No seatbelt use: always water heater temp set < 120 deg: No (Will check) working smoke detector in home: Yes fire extinguisher in home: Yes carbon monox detector in home: Yes firearms in home: No do you feel safe at home: Yes Smoking Status: Never smoker second hand exposure: No alcohol intake: former substance use type: marijuana (Quit when she learned she was ) during the past year weight has: remained stable well-balanced diet: about half the time daily servings fruits/ve-4 caffeine: Yes Type(s) of exercise: walking Discharge Plan Discharge orders & Medications Prescriptions: No Action valacyclovir [Valtrex] 500 mg tablet 500 mg PO Q12H Qty: 60 1RF prenat.vits,kim,qyt-[id number] Tablet 1 tab PO DAILY folic acid 800 mcg tablet 0.8 mg PO DAILY Follow up/Referrals: Mya Seals MD [Physician] - (post 6 week follow up appt on 10/31/2022 @ 0945 am) Doctor Lamas MD [Primary Care Provider] - Discharge Data Primary Care Provider: Doctor Adams
[2022-09-18 15:44] VITALS: BP 101/58; PULSE 100; RESP 18; TEMP 36.9
[2022-09-18] MEDS: RHO(D) IMMUNE GLOBULIN 1,500 UNIT SYRINGE 1500 UNIT IM (16:09)
[2022-09-18] MEDS: MEASLES,MUMPS,RUBELLA VACC/PF 0.5 ML VIAL SUBCUT (16:12)
--- NOTE | 2022-09-18 20:17 | PM.OBDS.1 ---
Discharge Providers Provider Date of admission: 09/17/22 04:54 Discharge Date: 09/18/22 Primary care physician: Doctor Adams MD Consults: 09/17/22 06:17 Consult to Anesthesiology Urgent Comment: Consulting Provider: Olga Gayle A Reason for consultation: Labor Has provider been notified: No Discharge provider: Mya Seals MD Summary Hospital Course Date Patient Seen: 09/18/22 Time Patient Seen: 14:20 Diagnoses: Thirty-nine week , delivered by forceps assisted vaginal delivery Spontaneous rupture membranes followed by spontaneous labor Prolonged 2nd stage of labor Hospital Course: 22 yo G1 admittedd at 39 weeks 4 days EGA with SROM. She awoke around 3:30 a.m. with a gush of fluid which continued.? She subsequently developed uncomfortable contractions.? She progressed into spontaneous labor. She received an epidural for anesthesia. She progressed to completely dilated. Contractions spaced during the 2nd stage of labor and Pitocin was started at 2 mu She had a prolonged 2nd stage of labor. After 3 hours, after bringing the vertex low enough to assist, assisted vaginal delivery offered. After electing to push further on her own for a while, she opted for assisted vaginal delivery after almost 4 hours of pushing. She underwent a forceps assisted vaginal delivery without complications. The baby was OA but vertex had been somewhat asynclitic. Delivered a female with Apgars of 9 and 9, weighing 7 lb 10 oz. she had repair of a right lateral sulcus tear which extended to the distal vagina and just through the right labia, and repair of a distal left vaginal sidewall laceration. She had some steady vaginal bleeding after delivery of the placenta, was not noted to be heavy but steady. Some clots were evacuated from her uterus and the uterus firmed up and bleeding decreased it. The routine Pitocin IV was continued. Her lochia then remained normal. She reports overall doing well today on day 1. Her hemoglobin today had dropped from 12 to 8, indicating higher EBL then noted. She reports she did feel somewhat lightheaded the 1st time getting up out of bed to the bathroom, but has done well since that time. Lochia has remained normal. She is ambulating without a problem. She reports voiding without a problem. She reports some vaginal discomfort, but currently is controlled with Tylenol and ibuprofen. The baby is latching well and she is without problems. She desires discharge to home today if the baby is ready for discharge. The baby is having routine lab work drawn currently and if normal, will reportedly be okay for discharge. She will be given RhoGAM prior to discharge home as baby's blood type was A positive. Patient is Rh negative. Routine instructions reviewed. Signs and symptoms of depression reviewed and to call as needed. Peripartum Data Infant Delivery Method: Natural Vaginal (Forceps assisted) Laceration Description: Periurethral - 1st Degree and Vaginal - 2nd Degree Episiotomy description: None complications: none Prather 1: Gender: Female Disposition of : home Status at Discharge Cognitive/behavioral status at discharge: oriented and at baseline, oriented Functional status at discharge: independent ambulation Overall status at discharge: patient is progressing back to baseline Time Spent with Patient Time attestation: Total time spent providing and/or coordinating discharge services: Time spent: Less than 30 minutes Objective Labs Result Diagrams: 09/18/22 08:15 Labs: Laboratory Results - last 24 hr 09/18/22 08:15 WBC 24.1 H D RBC 2.78 L Hgb 8.0 L Hct 24.3 L MCV 87.6 MCH 28.8 MCHC 32.9 RDW 13.8 Plt Count 234 Neut % (Auto) 73.9 Lymph % (Auto) 18.5 L Lamar % (Auto) 6.8 Eos % (Auto) 0.5 L Baso % (Auto) 0.3 Neut # (Auto) 00894 H Lymph # (Auto) 4500 [place] # (Auto) 1600 H Eos # (Auto) 100 Baso # (Auto) 100 Exam Vital Signs (past 8 hours): - 09/18/22 15:44 Temperature 98.4 F Pulse Rate 100 H Respiratory Rate 18 Blood Pressure 101/58 L Narrative Exam Narrative: General: Well-appearing female Abdomen: Soft, nontender, nondistended. Fundus U-1, firm, nontender Extremities: Trace pedal edema Discharge Plan Discharge Plan Patient Disposition: Home Provider Discharge Comment: forceps assisted vaginal delivery. Use Tylenol as directed on the bottle to help with Discharge orders & Medications Prescriptions: New ferrous sulfate 325 mg (65 mg iron) tablet 325 mg PO DAILY Qty: 30 1RF ibuprofen 600 mg tablet 600 mg PO Q6H PRN (Reason: pain) Qty: 60 0RF Continued prenat.vits,kim,qiz-vglo-aqwfa Tablet 1 tab PO DAILY Discontinued valacyclovir [Valtrex] 500 mg tablet 500 mg PO Q12H Qty: 60 1RF folic acid 800 mcg tablet 0.8 mg PO DAILY Follow up/Referrals: Mya Seals MD [Physician] - (post 6 week follow up appt on 10/31/2022 @ 0945 am) Doctor Lamas MD [Primary Care Provider] - Discharge Health Status Multidrug resistant organism: No MDRO Diet/Activity/Treatments Diet: Regular Activity: Nothing in the vagina for 6 weeks, including no tampons and no intercourse. No strenuous activity, exercise for 4 weeks. Due to lower blood count, recommend due walk slowly and gradually increase activity after 2 weeks. Skin/Wound/Dressing Care Report to your healthcare provider any signs of infection, such as:: chills, fever and increased pain Visit Report/Discharge Packet Instructions: DI for Labor and Delivery, Vaginal Discharge Data Primary Care Provider: Doctor Adams
== END 2022-09-18 17:47 | disposition home or self-care (01) | DRG 560 ==
PROVIDERS: Obstetrics & Gynecology; Admitting Provider Obstetrics & Gynecology; Referring Provider Obstetrics & Gynecology; Visit Provider Obstetrics & Gynecology
DX: O42.02 Full-term premature rupture of membranes, onset of labor within 24 hours of rupture (principal); O90.81 Anemia of the puerperium; D62 Acute posthemorrhagic anemia; O71.82 Other specified trauma to perineum and vulva; O70.1 Second degree perineal laceration during delivery; O98.52 Other viral diseases complicating childbirth; B00.9 Herpesviral infection, unspecified; O63.1 Prolonged second stage (of labor); Z3A.39 39 weeks gestation of pregnancy; Z37.0 Single live birth; Z67.11 Type A blood, Rh negative; Z20.822 Contact with and (suspected) exposure to COVID-19
CPT/HCPCS: 36415; 59025; 59409; 84112; 85025; 86850; 86900; 86901; 87635; C9803; G0379; J2590; J2790

== ENCOUNTER → 2023-05-06 12:49 | Outpatient (CLI) | payer OTHER, MEDICAID, SELFPAY ==
--- NOTE | 2023-05-06 12:49 | DI.US.S_ITS ---
PROCEDURE: US OB >= 14 WEEKS FETUS INDICATIONS: ANATOMY OUTSIDE/PRIOR DATING DATA: Last menstrual period (LMP): 12/20/2022 LMP-based estimated date of delivery (DONOVAN): 09/26/2023. First dating scan (date and location): 05/06/2023. Estimated date of delivery (DONOVAN) from first dating scan: 08/28/2023. The calculations are made using the clinical DONOVAN of 09/26/2023. TECHNIQUE: Real-time scanning was performed of the fetus, with image documentation and biometric measurements. COMPARISON: [facility], , OB >= 14 WEEKS FETUS, 08/20/2022, 8:40. [facility], , OB <= 14 WEEKS FETUS, 03/12/2023, 12:08. FINDINGS: General: A single living intrauterine gestation is present. Presentation: Transverse. Placenta: Placental position is anterior , with marginal previa. Amniotic fluid index: 17.6 cm, normal range is 5-24 cm. Single deepest vertical pocket is 5.0 cm. heart rate: 144 beats per minute. Maternal cervical canal: 6.3 cm long. Normal lower limit is 2.5 cm. biometrics: Biparietal diameter: 4.5 cm 19 weeks 4 days Head circumference: 16.6 cm 19 weeks 2 days Abdominal circumference: 13.3 cm 19 weeks 6 days Femur length: 3.0 cm 19 weeks 2 days Clinically estimated gestational age: 19 weeks 4 days Composite gestational age from present scan: 19 weeks 2 days Estimated weight and percentile: 272 g 20th percentile Anatomic survey: Neuro: Ventricles are non-dilated at less than 10 mm. Cisterna magna is normal at 3-11 mm. Cerebellum is normal in size and morphology. Nuchal skin fold: Normal at less than 6 mm between 14-21 weeks gestational age. Face: Nose and lips, facial profile are normal. Spine: No evidence for spina bifida. Heart: 4-chambered heart is present, with normal ventricular outflow tracts. Diaphragm: Diaphragm is intact. Stomach: Left-sided stomach is present. Kidneys: No hydronephrosis. Normal is less than 5 mm in 2nd trimester, less than 7 mm in 3rd trimester. Cord: 3-vessel cord has orthotopic insertion. Bladder: Normal in size. Extremities: All 4 extremities identified. IMPRESSION: Single live intrauterine with ultrasound gestational age today of 19 weeks 2 days. Anatomy is within normal limits. Marginal placental previa. Interval follow-up in attention to this region on subsequent exams is recommended. We strive to produce accurate, complete, and clear reports of imaging services. To assist us in improving patient care, this report was composed using standard report templates and voice recognition software. Therefore, it may contain abnormal punctuation, insertions and/or omissions. Occasional wrong-word or sound-alike substitutions may occur. Though we review the report and make efforts to correct it, we do recommend that the report be read carefully in proper context to recognize any text inaccuracies. Dictated by: Cari Vance M.D. on 05/06/2023 at 16:19 Approved by: Cari Vance M.D. on 05/06/2023 at 16:22
== END ==
PROVIDERS: Referring Provider Obstetrics & Gynecology; Visit Provider Obstetrics & Gynecology
DX: O44.22 Partial placenta previa NOS or without hemorrhage, second trimester (principal); Z3A.19 19 weeks gestation of pregnancy
CPT/HCPCS: 76811; 80055; 82105; 82677; 84702; 86336; 86787; 86803; 86850; 86900; 86901; 87086; 87389

== ENCOUNTER → 2023-05-06 14:53 | Outpatient (CLI) | payer OTHER, MEDICAID, SELFPAY ==
[2023-05-06 16:32] LABS: Add Manual Diff / Slide Review NO; Basophils Absolute Auto 0 /uL (0-100); Basophils Percent Auto 0.4 % (0-2); Eosinophils Absolute Auto 200 /uL (0-450); Eosinophils Percent Auto 1.7 % (2-4); Hematocrit 37.1 % (36-46); Hemoglobin 12.7 g/dL (12.0-16.0); Lymphocytes Absolute Auto 2700 /uL (1100-4500); Lymphocytes Percent Auto 25.1 % (25-40); Mean Corpuscular HGB Conc 34.2 % (30-36); Mean Corpuscular Hemoglobin 26.3 PG (26-34); Monocytes Absolute Auto 600 /uL (0-900); Monocytes Percent Auto 5.8 % (3-14); Neutrophils Absolute Auto 7100 /uL (1500-7000); Platelet Count 274 X10^3/uL (150-400); Red Blood Cell Count 4.82 X10^6/uL (4.0-5.2); Red Cell Distribution Width 15.5 % (11.6-14.8); White Blood Cell Count 10.7 X10^3/uL (4.5-11.0)
[2023-05-06 18:08] LABS: Hepatitis B Surface Antigen NEGATIVE s/c (NEGATIVE); Rubella Antibody IgG 47.4 IU/mL (>15)
[2023-05-06 18:18] LABS: HIV 1 & 2 Ab/Ag 4th Gen Combo NEGATIVE (NEGATIVE); Hep C Virus Ab w/Reflex Quant NEGATIVE s/c (NEGATIVE)
[2023-05-07 06:22] LABS: RPR Screen Non Reactive (Non Reactive)
[2023-05-07 10:08] LABS: Varicella IgG Antibody <135 index (Immune >165)
[2023-05-09 21:42] LABS: AFP, Serum 33.7 ng/mL (.); Estriol, Free 1.39 ng/mL (.); Inhibin A, Dimeric 277.77 pg/mL (.); Inhibin A, MoM 1.75 (.); Maternal Ethnicity Caucasian (.); Maternal Weight 168 lbs (.); Number of Fetuses No (.); OSBR Risk 1 IN 10000 (.); Results Report (.); Test Results *Screen Positive* (.); hCG, MoM 1.68 (.); hCG, Serum 40482 mIU/mL (.)
== END ==
PROVIDERS: Physician Assistant Medical; Referring Provider Obstetrics & Gynecology; Visit Provider Obstetrics & Gynecology
DX: Z34.82 Encounter for supervision of other normal pregnancy, second trimester (principal); Z3A.16 16 weeks gestation of pregnancy
CPT/HCPCS: 80055; 82105; 82677; 84702; 86336; 86787; 86803; 86850; 86900; 86901; 87086; 87389

== ENCOUNTER → 2023-06-03 14:34 | Outpatient (CLI) | payer OTHER, MEDICAID, SELFPAY ==
[2023-06-03 20:26] LABS: Urine N gonorrhoeae NOT DETECTED
[2023-06-03 20:38] LABS: Urine Chlamydia NOT DETECTED
== END ==
PROVIDERS: Visit Provider Obstetrics & Gynecology
DX: Z34.82 Encounter for supervision of other normal pregnancy, second trimester (principal); Z3A.23 23 weeks gestation of pregnancy
CPT/HCPCS: 87491; 87591

== ENCOUNTER 2023-07-08 07:19 | Outpatient (CLI) | payer OTHER, MEDICAID, SELFPAY ==
--- NOTE | 2023-07-08 09:04 | P.TNLD_ITS ---
Visit Information Visit Information Date of evaluation: 07/08/23 Primary OB Provider: Olga Gayle Reason for Evaluation: Yes rupture of membranes Comments/Additional reasons for admission: Patient is a 23-year-old 2 para 1 at 28+ 4 weeks' gestation who called thinking that she either was having urinary incontinence or her water breaking. [facility] Medical History (Updated 04/01/23 @ 22:02 by Olga Gayle MD) Chlamydia (~04/2022) Forceps delivery Herpes (~2018) HSV-2 infection Surgical History (Updated 02/12/23 @ 08:37 by Gayle Osorio, RN) No pertinent past surgical history Family History Grandfather Diabetes mellitus Hyperlipidemia Grandfather Myocardial infarction Diabetes mellitus History of heart disease Grandmother Ovarian cancer Breast cancer Skin cancer Grandmother Cancer of kidney Mother Colon cancer Social History marital status: unmarried,living together number of children: 0 household members: significant other and children lives independently: Yes caregiver/support person: Yes housing: apartment (townhouse) pets and animals: Yes (3 cats and one dog. Aware of toxoplasmosis.) education level: high school occupational status: employed and previously employed current occupational exposures/hazards: No special kenneth needs: No travel history: over 6 months ago seatbelt use: always helmet use: No (does not wear helmet when riding horses) water heater temp set < 120 deg: No (Will check) working smoke detector in home: Yes fire extinguisher in home: Yes carbon monox detector in home: Yes firearms in home: No do you feel safe at home: Yes Smoking Status: Never smoker second hand exposure: Yes (s/o smokes, but not in the house or car, not around pt) alcohol intake: former (occasionally when not ) substance use type: marijuana (Quit when she learned she was w/ 1st child) during the past year weight has: other (only had her last baby 5 months ago, hasn't lost any weight since then) well-balanced diet: rarely or never daily servings fruits/ve-1 (1-2) caffeine: Yes (counseled to decrease to no more than 200mg/day (usually 200- 300)) Type(s) of exercise: walking and other Exam Narrative Exam Narrative: Generally: Patient is sitting up in bed, no acute distress AmniSure: Negative Evaluation Evaluation Baseline heart rate: 135 Variability: Moderate (11-25) monitor accelerations: Present Monitor Decelerations: Absent Status: Category l Diagnosis, Plan/Disposition Plan/Disposition Plan: Assessment: 23-year-old 2 para 1 at 28-,4/7 weeks gestation No rupture of membranes AmniSure negative Plan: Follow-up July 22, 2023 as scheduled OB Disposition: home
--- NOTE | 2023-07-08 09:22 | PM.OBTRLD ---
Visit Information Visit Information Date of evaluation: 07/08/23 Primary OB Provider: Olga Gayle On-call OB Provider: Olga Gayle Reason for Evaluation: Yes pre-term labor Comments/Additional reasons for admission: Patient is a 23-year-old 2 para 1 at 36 and 2 weeks' gestation who reports having contractions from the middle of the night. She initially tried to ignore them and go back to sleep, but they persisted. She then took a bath but they have persisted. She also was having some nausea, vomiting, and diarrhea. [facility] Medical History (Updated 04/01/23 @ 22:02 by Olga Gayle MD) Chlamydia (~04/2022) Forceps delivery Herpes (~2018) HSV-2 infection Surgical History (Updated 02/12/23 @ 08:37 by Gayle Osorio, RN) No pertinent past surgical history Family History Grandfather Diabetes mellitus Hyperlipidemia Grandfather Myocardial infarction Diabetes mellitus History of heart disease Grandmother Ovarian cancer Breast cancer Skin cancer Grandmother Cancer of kidney Mother Colon cancer Social History marital status: unmarried,living together number of children: 0 household members: significant other and children lives independently: Yes caregiver/support person: Yes housing: apartment (townhouse) pets and animals: Yes (3 cats and one dog. Aware of toxoplasmosis.) education level: high school occupational status: employed and previously employed current occupational exposures/hazards: No special kenneth needs: No travel history: over 6 months ago seatbelt use: always helmet use: No (does not wear helmet when riding horses) water heater temp set < 120 deg: No (Will check) working smoke detector in home: Yes fire extinguisher in home: Yes carbon monox detector in home: Yes firearms in home: No do you feel safe at home: Yes Smoking Status: Never smoker second hand exposure: Yes (s/o smokes, but not in the house or car, not around pt) alcohol intake: former (occasionally when not ) substance use type: marijuana (Quit when she learned she was w/ 1st child) during the past year weight has: other (only had her last baby 5 months ago, hasn't lost any weight since then) well-balanced diet: rarely or never daily servings fruits/ve-1 (1-2) caffeine: Yes (counseled to decrease to no more than 200mg/day (usually 200-300)) Type(s) of exercise: walking and other Evaluation Evaluation Baseline heart rate: 135 Variability: Moderate (11-25) monitor accelerations: Present Monitor Decelerations: Absent Uterine Contraction Intensity: Mild Status: Category l Diagnosis, Plan/Disposition Plan/Disposition Plan: Assessment: 23-year-old 2 para 1 at 36-,2/7 weeks gestation with contractions Plan:
== END 2023-07-08 08:20 | disposition home or self-care (01) ==
LOC: LABOR 07:23 → OB 07-10 16:41
PROVIDERS: Referring Provider Obstetrics & Gynecology; Visit Provider Obstetrics & Gynecology
DX: Z03.71 Encounter for suspected problem with amniotic cavity and membrane ruled out (principal); Z3A.28 28 weeks gestation of pregnancy
CPT/HCPCS: 59025; 84112; G0378; G0379

== ENCOUNTER → 2023-07-18 07:44 | Outpatient (CLI) | payer OTHER, MEDICAID, SELFPAY ==
[2023-07-18 09:12] LABS: Hematocrit 32.5 % (36-46); Hemoglobin 10.9 g/dL (12.0-16.0)
[2023-07-18 09:44] LABS: GTT (PREG) 1 Hour PP 50gm Dose 130 mg/dL (76-139)
== END ==
PROVIDERS: Referring Provider Obstetrics & Gynecology; Visit Provider Obstetrics & Gynecology
DX: Z34.82 Encounter for supervision of other normal pregnancy, second trimester (principal); Z3A.26 26 weeks gestation of pregnancy
CPT/HCPCS: 36415; 82950; 85014; 85018; 86850

== ENCOUNTER → 2023-09-02 15:43 | Outpatient (CLI) | payer OTHER, MEDICAID, SELFPAY ==
[2023-09-03 14:47] LABS: Strep Grp B PCR NEG for Grp B Strep
== END ==
PROVIDERS: Visit Provider Obstetrics & Gynecology
DX: Z34.83 Encounter for supervision of other normal pregnancy, third trimester (principal); Z3A.36 36 weeks gestation of pregnancy
CPT/HCPCS: 87653

== ENCOUNTER 2023-09-02 16:22 | Outpatient (CLI) | payer OTHER, MEDICAID, SELFPAY | END 2023-09-02 17:20 | disposition home or self-care (01) | LOC: LABOR 17:14 → OB 09-06 11:05 | PROVIDERS: Referring Provider Obstetrics & Gynecology; Visit Provider Obstetrics & Gynecology | DX: O47.03 False labor before 37 completed weeks of gestation, third trimester (principal); O36.5930 Maternal care for other known or suspected poor fetal growth, third trimester, not applicable or unspecified; Z3A.35 35 weeks gestation of pregnancy; Z34.83 Encounter for supervision of other normal pregnancy, third trimester; Z3A.36 36 weeks gestation of pregnancy | CPT/HCPCS: 59025; 87653; G0378; G0379 ==

== ENCOUNTER 2023-09-09 15:01 | Outpatient (CLI) | payer OTHER, MEDICAID, SELFPAY | END 2023-09-09 15:43 | disposition home or self-care (01) | LOC: LABOR 15:08 → OB 09-10 13:40 | PROVIDERS: Referring Provider Obstetrics & Gynecology; Visit Provider Obstetrics & Gynecology | DX: O36.5930 Maternal care for other known or suspected poor fetal growth, third trimester, not applicable or unspecified (principal); O47.1 False labor at or after 37 completed weeks of gestation; Z3A.37 37 weeks gestation of pregnancy | CPT/HCPCS: 59025; G0378; G0379 ==

== ENCOUNTER 2023-09-16 13:50 | Outpatient (CLI) | payer OTHER, MEDICAID, SELFPAY | END 2023-09-16 14:25 | disposition home or self-care (01) | LOC: LABOR 14:02 → OB 09-20 13:50 | PROVIDERS: Referring Provider Obstetrics & Gynecology; Visit Provider Obstetrics & Gynecology | DX: O42.92 Full-term premature rupture of membranes, unspecified as to length of time between rupture and onset of labor (principal); O36.5930 Maternal care for other known or suspected poor fetal growth, third trimester, not applicable or unspecified; O47.1 False labor at or after 37 completed weeks of gestation; Z3A.38 38 weeks gestation of pregnancy | CPT/HCPCS: 59025; G0378; G0379 ==

== ENCOUNTER 2023-09-22 19:59 | Outpatient (CLI) | payer OTHER, MEDICAID, SELFPAY ==
--- NOTE | 2023-09-22 21:03 | P.TNLD_ITS ---
Visit Information Visit Information Date of evaluation: 09/22/23 On-call OB Provider: Pao Franco Reason for Evaluation: Yes non-stress test Comments/Additional reasons for admission: 23yo at 39+3wks called at 6:30pm stating she had decreased FM. Stated that she had noticed less movement, then laid down for 30 min and only felt 2 movements. She was advised to lay down for 1 hr and if she didn't meet 10 movements in the hour, she should come in. She then presented to the center, where she stated she had laid down and only felt 8 movements in 1 hr. Otherwise denied ctx, VB, or LOF. Vital Signs Vital Signs: BP 121/71, P 89 PFSH Medical History (Updated 09/22/23 @ 21:08 by Pao Franco DO) HSV-2 infection Forceps delivery Chlamydia (~04/2022) Herpes (~2018) Surgical History (Updated 02/12/23 @ 08:37 by Gayle Osorio, BRYANT) No pertinent past surgical history Family History Grandfather Diabetes mellitus Hyperlipidemia Grandfather Myocardial infarction Diabetes mellitus History of heart disease Grandmother Ovarian cancer Breast cancer Skin cancer Grandmother Cancer of kidney Mother Colon cancer Social History marital status: unmarried,living together number of children: 0 household members: significant other and children lives independently: Yes caregiver/support person: Yes housing: apartment (townhouse) pets and animals: Yes (3 cats and one dog. Aware of toxoplasmosis.) education level: high school occupational status: employed and previously employed current occupational exposures/hazards: No special kenneth needs: No travel history: over 6 months ago seatbelt use: always helmet use: No (does not wear helmet when riding horses) water heater temp set < 120 deg: No (Will check) working smoke detector in home: Yes fire extinguisher in home: Yes carbon monox detector in home: Yes firearms in home: No do you feel safe at home: Yes Smoking Status: Never smoker second hand exposure: Yes (s/o smokes, but not in the house or car, not around pt) alcohol intake: former (occasionally when not ) substance use type: marijuana (Quit when she learned she was w/ 1st child) during the past year weight has: other (only had her last baby 5 months ago, hasn't lost any weight since then) well-balanced diet: rarely or never daily servings fruits/ve-1 (1-2) caffeine: Yes (counseled to decrease to no more than 200mg/day (usually 200- 300)) Type(s) of exercise: walking and other Review of Systems Review of Systems ROS: Yes All systems reviewed with the patient and are negative except as otherwise documented Evaluation Evaluation Baseline heart rate: 135 Variability: Moderate (11-25) monitor accelerations: Present Monitor Decelerations: Absent Contraction Frequency (minutes): 10 Category of Tracing: Reactive Diagnosis, Plan/Disposition Final Diagnosis (1) Decreased movement: Status: Acute Plan/Disposition Plan: 23yo at 39+3wks with decreased FM. Reassuring evaluation in triage, with reactive NST. Pt also felt movement during her evaluation and felt reassured. -f/u in clinic tomorrow as scheduled OB Disposition: home
== END 2023-09-22 20:33 | disposition home or self-care (01) ==
LOC: OB 09-24 13:08
PROVIDERS: Referring Provider Student in an Organized Health Care Education/Training Program; Visit Provider Student in an Organized Health Care Education/Training Program
DX: O36.8130 Decreased fetal movements, third trimester, not applicable or unspecified (principal); Z3A.39 39 weeks gestation of pregnancy
CPT/HCPCS: 59025; G0378; G0379

== ENCOUNTER 2023-09-28 16:19 | Inpatient (IN) | payer OTHER, MEDICAID, SELFPAY ==
[2023-09-28 18:19] LABS: Add Manual Diff / Slide Review NO; Basophils Absolute Auto 100 /uL (0-100); Basophils Percent Auto 0.4 % (0-2); Eosinophils Absolute Auto 200 /uL (0-450); Eosinophils Percent Auto 1.5 % (2-4); Hematocrit 35.5 % (36-46); Hemoglobin 11.2 g/dL (12.0-16.0); Lymphocytes Absolute Auto 4100 /uL (1100-4500); Lymphocytes Percent Auto 24.8 % (25-40); Mean Corpuscular HGB Conc 31.4 % (30-36); Mean Corpuscular Hemoglobin 23.5 PG (26-34); Mean Corpuscular Volume 74.7 fL (80-100); Monocytes Absolute Auto 1100 /uL (0-900); Monocytes Percent Auto 6.5 % (3-14); Neutrophils Absolute Auto 11100 /uL (1500-7000); Neutrophils Percent Auto 66.8 % (50-75); Platelet Count 354 X10^3/uL (150-400); Red Blood Cell Count 4.75 X10^6/uL (4.0-5.2); Red Cell Distribution Width 16.4 % (11.6-14.8); White Blood Cell Count 16.6 X10^3/uL (4.5-11.0)
[2023-09-28 19:32] VITALS: BP 100/59
[2023-09-28] MEDS: LACTATED RINGERS 1,000 ML 100 ML IV (21:12)
[2023-09-28] MEDS: OXYTOCIN PREMIX 30 UNIT/500 ML PLAST..BAG IV (21:12)
--- NOTE | 2023-09-28 21:15 | PM.OBHP.IH.1 ---
OB HPI Date/Time Date of admission: 09/28/23 Date Patient Seen: 09/28/23 Time Patient Seen: 17:00 History of Present Condition Chief complaint: DONOVAN Calculator Estimated Delivery Date Method Current WG Current Estimate 09/26/23 LMP (Certain) 40w 3d Other Estimates 10/01/23 Ultrasound #1 39w 5d Estimated Gestational Age (weeks): 40+2 : 2 Para: 1 Narrative: Patient is a 23-year-old s/p SROM at 1430 pm with clear amniotic fluid, mild contractions care: good care, initiated at week # (11), number of visits (12) and pounds weight gain (18) Dating criteria OB: LMP confirmed by 1st trimester US Ultrasounds: normal 1st trimester US and abnormal US findings (5%ile for growth at 20 wk ultrasound) Obstetrical complications: other (abnormal quad screen) Medical complications OB: none Preadmission Labs Last OB Lab Results: Blood Type A Negative 09/28/23 17:05 Antibody Screen Positive 09/28/23 17:05 Hematocrit 35.5 % (36-46) L 09/28/23 17:05 Hemoglobin 11.2 g/dL (12.0-16.0) L 09/28/23 17:05 Hepatitis B Surface Antigen Negative s/c (NEGATIVE) 05/06/23 15:24 Hepatitis C Antibody Negative s/c (NEGATIVE) 05/06/23 15:24 Rubella Antibody 47.4 IU/mL (>15) 05/06/23 15:24 Varicella-Zoster IgG Antibody <135 index (Immune >165) L 05/06/23 15:24 Glucose 1 Hour 130 mg/dL (76-139) 07/18/23 07:46 Group B Streptococcus (PCR) Neg for grp b strep 09/02/23 15:43 -: Chlamydia screen: negative, Gonorrhea screen: negative and Urine: negative -: PAP smear: Normal (04/25) Genetic Screens: Quad screen: Abnormal and Cell-free DNA: Normal (normal female) External Labs -: Urine: negative Prior (ies) Past Pregnancies Del. Date GA/Weeks Labor Lgth Wt Sex Route Outcome Anesthesia Place Delv Breastfeed Preg Comp Name 09/17/22 39 15 7 lb 10 oz Female forceps live - full term [facility] <1 week none [place] Evaluation Evaluation Baseline heart rate: 135 Variability: Moderate (11-25) monitor accelerations: Present Monitor Decelerations: Absent Contraction Frequency (minutes): 3 Uterine Contraction Intensity: Strong/Firm Dilation (cm): 3 Effacement (%): 75 station: +1 PFSH Medical History (Updated 09/22/23 @ 21:08 by Pao Franco DO) HSV-2 infection Forceps delivery Chlamydia (~04/2022) Herpes (~2018) Surgical History (Updated 02/12/23 @ 08:37 by Gayle Osorio, RN) No pertinent past surgical history Family History Grandfather Diabetes mellitus Hyperlipidemia Grandfather Myocardial infarction Diabetes mellitus History of heart disease Grandmother Ovarian cancer Breast cancer Skin cancer Grandmother Cancer of kidney Mother Colon cancer Social History marital status: unmarried,living together number of children: 0 household members: significant other and children lives independently: Yes caregiver/support person: Yes housing: apartment (townhouse) pets and animals: Yes (3 cats and one dog. Aware of toxoplasmosis.) education level: high school occupational status: employed and previously employed current occupational exposures/hazards: No special kenneth needs: No travel history: over 6 months ago seatbelt use: always helmet use: No (does not wear helmet when riding horses) water heater temp set < 120 deg: No (Will check) working smoke detector in home: Yes fire extinguisher in home: Yes carbon monox detector in home: Yes firearms in home: No do you feel safe at home: Yes Smoking Status: Never smoker second hand exposure: Yes (s/o smokes, but not in the house or car, not around pt) alcohol intake: former (occasionally when not ) substance use type: marijuana (Quit when she learned she was w/ 1st child) during the past year weight has: other (only had her last baby 5 months ago, hasn't lost any weight since then) well-balanced diet: rarely or never daily servings fruits/ve-1 (1-2) caffeine: Yes (counseled to decrease to no more than 200mg/day (usually 200-300)) Type(s) of exercise: walking and other Meds Home Medications and Allergies Home Medications Medication Instructions Recorded Confirmed Type prenat.vits,kim,zxc-pxhj-vgpel 1 tab PO DAILY 03/22/22 09/28/23 History valacyclovir 500 mg tablet 500 mg PO DAILY #30 tabs 09/25/23 09/28/23 Rx (Valtrex) Allergies Allergy/AdvReac Type Severity Reaction Status Date / Time No Known Drug Allergies Allergy Verified 09/23/23 14:47 OB Exam Narrative Exam Narrative: Generally: Patient lying in bed, comfortable with contractions Lungs: Clear to auscultation bilaterally Cardiovascular: Regular rate and rhythm Fundal height: 40 cm Estimated weight: 7-1/2 lb Extremities: Trace edema Objective Labs 09/28/23 17:05 Labs: Laboratory Results - last 24 hr 09/28/23 17:05 WBC 16.6 H RBC 4.75 Hgb 11.2 L Hct 35.5 L MCV 74.7 L MCH 23.5 L MCHC 31.4 RDW 16.4 H Plt Count 354 Neut % (Auto) 66.8 Lymph % (Auto) 24.8 L [place] % (Auto) 6.5 Eos % (Auto) 1.5 L Baso % (Auto) 0.4 Neut # (Auto) 14599 H Lymph # (Auto) 4100 [place] # (Auto) 1100 H Eos # (Auto) 200 Baso # (Auto) 100 Blood Type A Negative Antibody Screen Positive Antibody Identification Anti-D Assessment and Plan Assessment and Plan Assessment and Plan narrative: Assessment: 23 year old at 40+2 weeks gestation s/p SROM with clear amniotic fluid GBS negative H/O HSV, on Valtrex, no active lesions Plan: Pitocin augmentation as needed Epidural as needed Expectant management to Time Spent with Patient Total time spent with greater than 50% in coordination of care (as documented) at patient's floor/unit and/or counseling patient:: 15-24 minutes
[2023-09-29] MEDS: LACTATED RINGERS 1,000 ML 100 ML IV (00:50)
--- NOTE | 2023-09-29 07:29 | PM.OBPRVD ---
Events: Labor Augmentation and Premature Rupture Membrane Labor & Delivery Delivery date: 09/29/23 Intrapartal Events: None Cervical ripening method: none Induction method: none Delivery augmentation: pitocin Delivery monitor: external FHT and external uterine Route of delivery: Episiotomy description: None L&D Laceration Description: None Quantitative Blood Loss: 1,037 Anesthesia Type: Epidural Complications: None Narrative: Patient complete and pushed x4. At 7:05 a.m., a live female delivered spontaneously over an intact perineum from the direct OP presentation to the JENNIFFER presentation. The remainder of the body delivered without difficulty and was placed on mom's abdomen. Pitocin was given in the IV fluids at 220 cc an hour. The cord was double clamped and cut after several minutes when brisk vaginal bleeding occurred. Cord bloods were obtained. The placenta delivered intact with a three-vessel cord at 7:10 a.m.. The fundus was massaged to firm. The perineum/vagina were inspected and there were no lacerations. QBL 700 cc. Apgars 9 at 1 minute and 9 at 5 minutes. Epidural analgesia. . Mom and stable to recovery. [place] Baby 1: Infant gender: Female Presentation: vertex Position: Left Occiput Anterior Placenta delivery description: Spontaneous Cord Vessel Description: 3 Vessels and Clamped/Cut (after 3 min) score (1 min): 9 score (5 min): 9 weight: 7 lb 5 oz Plan for aftercare: Routine care
[2023-09-29] MEDS: TRANEXAMIC ACID 1,000 MG in SODIUM CHLORIDE 0.9% 100 ML 200 MG IV (07:42)
[2023-09-29] MEDS: DERMOPLAST SPRAY 20% 60 ML 1 SPRAY TOP (12:32)
[2023-09-29] MEDS: ACETAMINOPHEN 325 MG TABLET 650 MG PO ×2 (14:05→20:16)
[2023-09-29] MEDS: IBUPROFEN 600 MG TABLET PO ×2 (14:05→20:16)
[2023-09-29] MEDS: RHO(D) IMMUNE GLOBULIN 1,500 UNIT SYRINGE 1500 UNIT IM (14:06)
--- NOTE | 2023-09-29 14:20 | PM.ANES.PR ---
Operative Date/Time/Diagnoses Date of procedure: 09/29/23 Time of procedure: 04:30 Pre-op diagnosis: Labor pain Post-op diagnosis: same Note Patient is a requesting labor epidural
--- NOTE | 2023-09-29 14:21 | P.PCN_ITS ---
Regional Block Pre-procedure Procedure: Continuous Lumbar Epidural for L&D Attending OB provider: Olga Gayle PMH/ROS narrative: Patient is a requesting labor epidural Hx: No personal or family history of anesthesia problems. Exam narrative: Mallampati 2; good neck ROM, normal dentition ASA Class: II Labs: Hct 35.5 % (36-46) L 09/28/23 17:05 Plt Count 354 X10^3/uL (150-400) 09/28/23 17:05 Medications: Current Medications Generic Name Dose Route Start Last Admin Trade Name Freq PRN Reason Stop Dose Admin Acetaminophen 650 mg 09/29/23 07:53 09/29/23 14:05 Acetaminophen 325 Mg Tablet PO 650 mg Q6HR PRN Administration Pain, Mild (1-3) Benzocaine 1 spray 09/29/23 11:29 09/29/23 12:32 Dermoplast [place] 20% 60 Ml TOP 1 spray Q1HR PRN Administration Pain, Moderate (4-6) Carboprost Tromethamine 250 mcg 09/29/23 07:53 Carboprost 250 Mcg/Ml Ampul IM Q90MIN PRN Bleeding Docusate Sodium 100 mg 09/29/23 09:00 Docusate 100 Mg Capsule PO DAILY CARLEE Emollient Ointment 1 applic 09/29/23 07:53 Lanolin Oint 7 Gm TOP PRN PRN Tenderness Tranexamic Acid 1,000 mg/ 100 mls @ 200 mls/hr 09/29/23 07:53 Sodium Chloride IV NOW PRN Bleeding Oxytocin/Lactated Ringer's 30 unit in 500 mls @ 200 mls/hr 09/29/23 07:53 Oxytocin Premix IV CONT PRN Bleeding Protocol Ibuprofen 600 mg 09/29/23 07:53 09/29/23 14:05 Ibuprofen 600 Mg Tablet PO 600 mg Q6HR PRN Administration Pain, Mild (1-3) Methylergonovine Maleate 0.2 mg 09/29/23 07:53 Methylergonovine 0.2 Mg/Ml Vial IM NOW PRN Bleeding Methylergonovine Maleate 0.2 mg 09/29/23 07:53 Methylergonovine 0.2 Mg Tablet PO Q6HR PRN Heavy bleeding Misoprostol 400 mcg 09/29/23 07:53 Misoprostol 200 Mcg Tablet SL NOW PRN Bleeding Misoprostol 1,000 mcg 09/29/23 07:53 Misoprostol 200 Mcg Tablet FL NOW PRN Bleeding Misoprostol 800 mcg 09/29/23 07:53 Misoprostol 200 Mcg Tablet FL NOW PRN Bleeding Naloxone HCl 0.2 mg 09/29/23 07:53 Naloxone 0.4 Mg/Ml Vial IV Q2MIN PRN Opiate Reversal Oxycodone HCl 5 mg 09/29/23 07:53 Oxycodone Ir 5 Mg Tablet PO Q4HR PRN Pain, Moderate (4-6) Oxytocin 10 unit 09/29/23 07:53 Oxytocin 10 Unit/Ml Vial IM NOW PRN Bleeding Vit/Calcium/Iron/Folic Ac 1 tab 09/29/23 09:00 Vit,Calc/Iron/Folic 1 Tablet PO DAILY CARLEE Rho Immune Globulin 1,500 unit 09/29/23 07:53 09/29/23 14:06 Rho(D) Immune Globulin 1,500 Unit Syringe IM 1,500 unit NOW PRN Administration Mom Rh neg, Rh pos Allergies: Allergies Allergy/AdvReac Type Severity Reaction Status Date / Time No Known Drug Allergies Allergy Verified 09/23/23 14:47 Procedure Insertion date: 09/29/23 Insertion time: 04:47 Prep/Local: 1% lidocaine (Sterile drape, gloves, prep with Chloroprep) Interspace: L4-5 Needle: 18 gauge Shannen Loss of resistance with: saline JOSE at (cm): 5 Catheter placed at SKIN (cm): 9 Catheter in SPACE (cm): 4 Sensory level: T10 Insertion: No CSF, No Blood, No Paresthesia with insertion, No Paresthesia with injection and No Test dose reaction Initial Medications TEST DOSE time: 04:55 TEST DOSE: 1.5% lidocaine with epinephrine 1:200k (mL): 5 BOLUS DOSE time: 04:56 BOLUS DOSE (mL): 5 BOLUS DOSE med: other (2% Lidocaine) Infusion INFUSION: 0.125% bupivacaine and with fentanyl 2 mcg/mL Initial rate (mL/hr): 10 Post-procedure Anesthesia time START: 04:47 Anesthesia time END: 07:10 Post-procedure Anesthesia Assessment: Yes CV function: HR/BP stable, Yes Resp function: RR/sat/airway adequate, Yes Post-op hydration adequate, Yes Pain control adequate, Yes Nausea & vomiting absent, Yes Temperature > 36 C and Yes Mental status appropriate
[2023-09-30] MEDS: ACETAMINOPHEN 325 MG TABLET 650 MG PO ×2 (02:22→09:08)
[2023-09-30] MEDS: IBUPROFEN 600 MG TABLET PO ×2 (02:22→09:07)
[2023-09-30 06:39] LABS: Hematocrit 28.2 % (36-46); Hemoglobin 9.2 g/dL (12.0-16.0)
[2023-09-30] MEDS: PRENATAL VIT,CALC/IRON/FOLIC 1 TABLET 1 TAB PO (09:07)
[2023-09-30] MEDS: DOCUSATE 100 MG CAPSULE PO (09:08)
[2023-09-30 13:46] VITALS: BP 99/57; PULSE 80; RESP 16; TEMP 37.1
== END 2023-09-30 13:18 | disposition home or self-care (01) | DRG 560 ==
PROVIDERS: Admitting Provider Obstetrics & Gynecology; Referring Provider Obstetrics & Gynecology; Visit Provider Obstetrics & Gynecology
DX: O42.02 Full-term premature rupture of membranes, onset of labor within 24 hours of rupture (principal); O36.0130 Maternal care for anti-D [Rh] antibodies, third trimester, not applicable or unspecified; Z3A.40 40 weeks gestation of pregnancy; Z37.0 Single live birth; O98.52 Other viral diseases complicating childbirth; B00.9 Herpesviral infection, unspecified
CPT/HCPCS: 36415; 59050; 59409; 84112; 85014; 85018; 85025; 86850; 86870; 86900; 86901; G0379; J2590; J2790